=== PATIENT | female | born 1995 | race Caucasian/White ===

== ENCOUNTER → 2019-06-03 | Outpatient (CLI) | payer OTHER ==
[2019-06-03 12:46] LABS: HEMATOCRIT 43.2 % (37.0-47.0); HEMOGLOBIN 13.9 g/dl (12.0-16.0); MEAN CELL VOLUME 93.9 fl (81.0-99.0); MEAN CORPUSCULAR HGB 30.2 pg (27.0-31.0); MEAN CORPUSCULAR HGB CONC 32.2 g/dl (33.0-37.0); MEAN PLATELET VOLUME 10.6 fl (9.6-12.3); RED BLOOD COUNT 4.6 10*6/uL (4.10-5.10); RED CELL DISTRI WIDTH 12.4 % (0-14.5)
[2019-06-03 13:15] LABS: BUN 11 mg/dl (7-24); CHLORIDE 105 mmol/L (98-107); CHOLESTEROL 200 mg/dL (<200); POTASSIUM 3.8 mmol/L (3.5-5.1); SGOT/AST 12 IU/L (3-35); SGPT/ALT 21 U/L (12-78); SODIUM 137 mmol/L (136-145)
[2019-06-03 13:23] LABS: ALKALINE PHOSPHATASE 32 U/L (45-117); CREATININE 0.89 mg/dL (0.55-1.02); HDL CHOLESTEROL 46 mg/dl (40-60); LDL CHOLESTEROL 125 mg/dL (9-159); THYROID STIM HORMONE (HS) 0.869 uIU/ml (0.358-4.75); TOTAL PROTEIN 7.3 gm/dL (6.4-8.2); TRIGLYCERIDES 143 mg/dl (<150); VLDL CHOLESTEROL 29 mg/dL (6-40)
== END | disposition home or self-care (01) ==
LOC: LAB 11:28 → US 11:30
PROVIDERS: Family Medicine
DX: N92.0 Excessive and frequent menstruation with regular cycle (principal); N83.209 Unspecified ovarian cyst, unspecified side; E78.00 Pure hypercholesterolemia, unspecified; E55.9 Vitamin D deficiency, unspecified; R53.83 Other fatigue

== ENCOUNTER → 2020-01-27 | Outpatient (CLI) | payer OTHER | END | disposition home or self-care (01) | LOC: US 13:26 | PROVIDERS: ATTEND Nurse Practitioner Women's Health | DX: Z33.1 Pregnant state, incidental (principal); Z3A.01 Less than 8 weeks gestation of pregnancy ==

== ENCOUNTER → 2020-04-09 | Outpatient (CLI) | payer OTHER | END | disposition home or self-care (01) | LOC: US 13:00 | PROVIDERS: ATTEND Obstetrics & Gynecology | DX: Z34.02 Encounter for supervision of normal first pregnancy, second trimester (principal); Z3A.19 19 weeks gestation of pregnancy ==

== ENCOUNTER 2020-06-26 12:08 | Emergency (ER) | payer OTHER ==
[~2020-06-26] VITALS: Wt 73.9 kg
[2020-06-26 13:02] LABS: BILIRUBIN 1+ (Negative); BLOOD Trace-Lysed (Negative); CLARITY Turbid (Clear); COLOR Dark Yellow (Yellow); GLUCOSE Negative (Negative); KETONE 2+ (Negative); LEUKO ESTERASE 1+ (Negative); NITRITE Positive (Negative); SPECIFIC GRAVITY >= 1.030 (1.001-1.030)
[2020-06-26 13:17] LABS: BASO % 0.3 % (0.0-1.0); EOS % 0.6 % (1.0-4.0); HEMATOCRIT 33.1 % (37.0-47.0); LYMPH # 1.4 10*3/uL (1.3-4.4); LYMPH % 19.1 % (27.0-41.0); MEAN CELL VOLUME 91.7 fl (81.0-99.0); MEAN CORPUSCULAR HGB 30.5 pg (27.0-31.0); MEAN CORPUSCULAR HGB CONC 33.2 g/dl (33.0-37.0); MEAN PLATELET VOLUME 10.5 fl (9.6-12.3); MONO # 0.4 10*3/uL (0.1-1.0); NEUT # 5.3 10*3/uL (2.3-7.9); NEUT % 73.6 % (47.0-73.0); PLATELET COUNT AUTOMATED 259 10*3/uL (130-400); RED BLOOD COUNT 3.61 10*6/uL (4.10-5.10); RED CELL DISTRI WIDTH 12.6 % (0-14.5); WHITE BLOOD COUNT 7.2 10*3/uL (4.8-10.8)
[2020-06-26 13:27] LABS: WBC 16-20 wbc/hpf (0-5)
[2020-06-26 13:28] LABS: BACTERIA 4+; MUCOUS 2+
[2020-06-26 13:34] LABS: ALBUMIN 2.8 gm/dl (3.1-4.5); ALKALINE PHOSPHATASE 70 U/L (45-117); BUN 11 mg/dl (7-24); CHLORIDE 105 mmol/L (98-107); CREATININE 0.69 mg/dL (0.55-1.02); POTASSIUM 3.6 mmol/L (3.5-5.1); SGOT/AST 10 IU/L (3-35); SGPT/ALT 17 U/L (12-78); SODIUM 139 mmol/L (136-145); TOTAL PROTEIN 6.3 gm/dL (6.4-8.2)
[2020-06-26] MEDS ORDERED: CEPHALEXIN500 M1 PO (14:44)
[2020-06-26 14:54] VITALS: BP 96/60
== END 2020-06-26 15:43 | disposition home or self-care (01) ==
LOC: ED 12:08
PROVIDERS: Nurse Practitioner
DX: O23.43 Unspecified infection of urinary tract in pregnancy, third trimester (principal); O26.893 Other specified pregnancy related conditions, third trimester; R55 Syncope and collapse; Z3A.30 30 weeks gestation of pregnancy

== ENCOUNTER → 2020-07-05 | Outpatient (CLI) | payer OTHER ==
[~2020-07-05] MED LIST: CEPHALEXIN500 M1 PO
== END | disposition home or self-care (01) ==
LOC: US 08:42
PROVIDERS: ATTEND Obstetrics & Gynecology
DX: Z34.03 Encounter for supervision of normal first pregnancy, third trimester (principal); Z3A.31 31 weeks gestation of pregnancy

== ENCOUNTER → 2020-08-14 | Outpatient (CLI) | payer OTHER | END | disposition home or self-care (01) | LOC: US 15:30 | PROVIDERS: ATTEND Obstetrics & Gynecology | DX: Z34.03 Encounter for supervision of normal first pregnancy, third trimester (principal); Z3A.37 37 weeks gestation of pregnancy ==

== ENCOUNTER → 2024-11-19 | Outpatient (CLI) | payer BC, OTHER ==
[2024-11-19 09:48] LABS: BASO # 0.0 10*3/uL (0.0-0.1); BASO % 0.3 % (0.0-1.0); EOS # 0.1 10*3/uL (0.0-0.4); EOS % 0.9 % (1.0-4.0); MEAN CELL VOLUME 91.1 fl (81.0-99.0); MEAN CORPUSCULAR HGB 28.5 pg (27.0-31.0); MEAN PLATELET VOLUME 10.3 fl (9.6-12.3); MONO # 0.5 10*3/uL (0.1-1.0); MONO % 6.6 % (3.0-9.0); NEUT # 5.6 10*3/uL (2.3-7.9); NEUT % 73.1 % (47.0-73.0); NUCLEATED RED BLOOD CELL 0.0 % (0.0-0.0); NUCLEATED RED BLOOD CELL 0.0 10*3/uL (0.0-0.0); PLATELET COUNT AUTOMATED 281 10*3/uL (130-400); RED CELL DISTRI WIDTH 13.1 % (0-14.5)
== END | disposition home or self-care (01) ==
LOC: LAB 08:31
PROVIDERS: ATTEND Student in an Organized Health Care Education/Training Program
DX: Z34.92 Encounter for supervision of normal pregnancy, unspecified, second trimester (principal); Z3A.22 22 weeks gestation of pregnancy

== ENCOUNTER → 2024-11-21 | Outpatient (CLI) | payer SELFPAY | END | disposition home or self-care (01) | LOC: LAB 01:14 | PROVIDERS: ATTEND Student in an Organized Health Care Education/Training Program | DX: Z34.92 Encounter for supervision of normal pregnancy, unspecified, second trimester (principal); Z3A.22 22 weeks gestation of pregnancy ==